=== PATIENT | male | born 1960 | race Asian ===

== ENCOUNTER 2016-10-19 12:08 | Inpatient (IN) | payer OTHER ==
[2016-10-19] VITALS (185 sets, daily range): BP systolic 110–115; BP diastolic 73–83; PULSE 73–91; TEMP 98.9–99; O2SAT 86–100
[~2016-10-19] VITALS: Ht 167.6 cm; Wt 60.3 kg
[2016-10-19 12:42] LABS: PROTHROMBIN TIME 11.1 SECONDS (9.7-12.8)
[2016-10-19 12:44] LABS: BASO # 0.1 (0.0-0.2); BASO % 0.9 % (0.0-2.0); EOS # 1.3 (0.0-0.7); EOS % 10.1 % (0-4.0); GRAN # 8.9 (1.4-6.5); GRAN % 69.5 % (42.2-75.2); HEMATOCRIT 37.7 % (42.0-52.0); HEMOGLOBIN 12.2 g/dl (13.5-18.0); LYMPH # 1.9 (1.2-3.4); LYMPH % 14.6 % (20.0-51.0); MEAN CELL VOLUME 81 fl (80.0-100.0); MEAN CORPUSCULAR HEMOGLOBIN 26 pg (27.0-31.0); MEAN CORPUSCULAR HGB CONC 32 g/dl (33.0-37.0); MONO # 0.6 (0.1-0.6); MONO % 4.3 % (1.7-9.3); PLATELET COUNT 423 K/mm3 (130-400); RED BLOOD COUNT 4.63 M/mm3 (4.20-5.60); REDCELL DISTRIBUTION WIDTH-CV 16.2 % (11.5-14.5); WHITE BLOOD COUNT 12.8 K/mm3 (4.8-10.8)
[2016-10-19 12:45] LABS: PARTIAL THROMBOPLASTIN TIME 43.2 SECONDS (26.0-37.0)
[2016-10-19 13:29] LABS: INFLUENZA B NEGATIVE
[2016-10-19 13:34] LABS: ADJUSTED CALCIUM 9.1 mg/dL (8.4-10.2); ALANINE AMINOTRANSFERASE 31 U/L (21-72); ALBUMIN 4.3 gm/dL (3.5-5.0); ALKALINE PHOSPHATASE 145 U/L (50-136); ANION GAP 12 mmol/L (7-16); BILIRUBIN,TOTAL 0.8 mg/dL (0.0-1.0); CALCIUM 9.3 mg/dL (8.4-10.2); CARBON DIOXIDE 24 mmol/L (22-30); CHLORIDE 93 mmol/L (98-107); CREATININE, serum 2.84 mg/dL (0.66-1.25); GLUCOSE 274 mg/dL (74-106); MAGNESIUM 2.9 mg/dL (1.6-2.3); PHOSPHOROUS 7.8 mg/dL (2.5-4.5); SODIUM 129 mmol/L (137-145); TOTAL PROTEIN 8.5 gm/dL (6.4-8.2); TROPONIN-I 0.027 ng/mL (0.000-0.034)
[2016-10-19 13:35] LABS: BLOOD UREA NITROGEN 87 mg/dL (9-20)
[2016-10-19 13:58] LABS: POTASSIUM 9.1 mmol/L (3.4-5.0)
[2016-10-19 15:30] LABS: HYALINE CAST >12 /lpf; PH 5 (5-8); SQUAMOUS EPITHELIAL 0-2 /hpf; URINE APPEARANCE Clear; URINE BACTERIA None Seen /hpf; URINE BILIRUBIN Negative (NEGATIVE); URINE BLOOD Negative (NEGATIVE); URINE COLOR Yellow; URINE GLUCOSE 1+ (NEGATIVE); URINE KETONE Negative (NEGATIVE); URINE RBC 0-2 /hpf; URINE UROBILINOGEN Negative (NEGATIVE); URINE WBC 0-2 /hpf
[2016-10-19] MEDS ORDERED: CEPHALEXIN500 M1 PO (16:08)
[2016-10-19] MEDS ORDERED: LEVAQUIN 5500 MG/TA1 PO (16:09)
[2016-10-19] MEDS ORDERED: LIPITOR 80MG80 MG PO (16:10)
[2016-10-19] MEDS ORDERED: IRON325 M2 PO (16:10)
[2016-10-19] MEDS ORDERED: ZESTRIL40 MG PO (16:11)
[2016-10-19] MEDS ORDERED: LASIX 40MG TABL40 MG PO (16:11)
[2016-10-19] MEDS ORDERED: KLOR-CON M2020 MEQ PO (16:12)
[2016-10-19] MEDS ORDERED: TOPROL XL 25MG25 MG PO ×2 (16:13→16:14)
[2016-10-19] MEDS ORDERED: TOPROL XL 50MG50 MG PO (16:13)
[2016-10-19] MEDS ORDERED: NITROSTAT0.4 MG/TAB SL (16:14)
[2016-10-19] MEDS ORDERED: ALDACTONE 25MG25 M1 PO (16:14)
[2016-10-19] MEDS ORDERED: TESSALON P100 MG/CAP PO (16:16)
[2016-10-20] VITALS (1153 sets, daily range): BP systolic 131–164; BP diastolic 57–94; PULSE 88–97; TEMP 97.8–99.1; O2SAT 84–100
[2016-10-20 06:22] LABS: CALCIUM 9.9 mg/dL (8.4-10.2); CREATININE, serum 1.23 mg/dL (0.66-1.25); POTASSIUM 5.4 mmol/L (3.4-5.0)
[2016-10-20 18:21] LABS: TROPONIN-I 0.035 ng/mL (0.000-0.034)
[2016-10-21] VITALS (836 sets, daily range): BP systolic 144–172; BP diastolic 90–94; PULSE 75–86; TEMP 97.4–98.9; O2SAT 89–100
[2016-10-21 06:11] LABS: BASO # 0.1 (0.0-0.2); BASO % 0.9 % (0.0-2.0); EOS # 0.8 (0.0-0.7); EOS % 9.8 % (0-4.0); GRAN # 5.2 (1.4-6.5); GRAN % 65.9 % (42.2-75.2); LYMPH # 1.3 (1.2-3.4); LYMPH % 16.6 % (20.0-51.0); MEAN CELL VOLUME 83 fl (80.0-100.0); MEAN CORPUSCULAR HGB CONC 32 g/dl (33.0-37.0); MEAN PLATELET VOLUME 11.4 fl (7.4-10.4); MONO # 0.5 (0.1-0.6); MONO % 6.4 % (1.7-9.3); RED BLOOD COUNT 3.45 M/mm3 (4.20-5.60); REDCELL DISTRIBUTION WIDTH-CV 15.7 % (11.5-14.5); WHITE BLOOD COUNT 7.9 K/mm3 (4.8-10.8)
[2016-10-21 06:16] LABS: CREATININE, serum 0.94 mg/dL (0.66-1.25); POTASSIUM 5.3 mmol/L (3.4-5.0)
[2016-10-21 06:17] LABS: HEMATOCRIT 28.6 % (42.0-52.0); HEMOGLOBIN 9.2 g/dl (13.5-18.0); MEAN CORPUSCULAR HEMOGLOBIN 27 pg (27.0-31.0); PLATELET COUNT 218 K/mm3 (130-400)
[2016-10-21 06:27] LABS: TROPONIN-I 0.034 ng/mL (0.000-0.034)
[2016-10-21] MEDS ORDERED: CLARITIN 1010 MG/TAB PO (20:44)
[2016-10-21] MEDS ORDERED: NORCO 325 MG-101 TAB PO (20:45)
[2016-10-21 23:11] LABS: PROT-CREAT RATIO, URINE 0.5 (())
[2016-10-22] VITALS (7 sets, daily range): BP systolic 134–159; BP diastolic 65–87; PULSE 64–80; TEMP 98.1–98.6
[2016-10-22 08:22] LABS: BASO % 0.5 % (0.0-2.0); GRAN # 5.2 (1.4-6.5); GRAN % 64.8 % (42.2-75.2); LYMPH # 1.4 (1.2-3.4); LYMPH % 17.4 % (20.0-51.0); MEAN CELL VOLUME 83 fl (80.0-100.0); MEAN CORPUSCULAR HGB CONC 32 g/dl (33.0-37.0); MEAN PLATELET VOLUME 11.4 fl (7.4-10.4); MONO # 0.4 (0.1-0.6); PLATELET COUNT 209 K/mm3 (130-400); RED BLOOD COUNT 3.69 M/mm3 (4.20-5.60); REDCELL DISTRIBUTION WIDTH-CV 15.6 % (11.5-14.5)
[2016-10-22 08:35] LABS: HEMATOCRIT 30.5 % (42.0-52.0); HEMOGLOBIN 9.7 g/dl (13.5-18.0); MEAN CORPUSCULAR HEMOGLOBIN 26 pg (27.0-31.0)
[2016-10-22 08:53] LABS: ADJUSTED CALCIUM 9.3 mg/dL (8.4-10.2); ALBUMIN 3.2 gm/dL (3.5-5.0); BILIRUBIN,TOTAL 0.6 mg/dL (0.0-1.0); CALCIUM 8.7 mg/dL (8.4-10.2); CREATININE, serum 0.92 mg/dL (0.66-1.25); POTASSIUM 4.4 mmol/L (3.4-5.0); TOTAL PROTEIN 6.5 gm/dL (6.4-8.2)
[2016-10-23 03:31] VITALS: BP 144/68; PULSE 72; TEMP 98.1
[2016-10-23 07:41] VITALS: BP 142/65; PULSE 72; TEMP 98
[2016-10-23 07:52] LABS: BASO # 0.1 (0.0-0.2); BASO % 0.5 % (0.0-2.0); EOS # 1.4 (0.0-0.7); GRAN # 5.8 (1.4-6.5); GRAN % 63.6 % (42.2-75.2); LYMPH # 1.5 (1.2-3.4); LYMPH % 16.1 % (20.0-51.0); MEAN CELL VOLUME 82 fl (80.0-100.0); MEAN CORPUSCULAR HGB CONC 32 g/dl (33.0-37.0); MEAN PLATELET VOLUME 10.8 fl (7.4-10.4); MONO # 0.4 (0.1-0.6); MONO % 4.6 % (1.7-9.3); PLATELET COUNT 198 K/mm3 (130-400); RED BLOOD COUNT 3.58 M/mm3 (4.20-5.60); REDCELL DISTRIBUTION WIDTH-CV 15.2 % (11.5-14.5); WHITE BLOOD COUNT 9.2 K/mm3 (4.8-10.8)
[2016-10-23 07:55] LABS: ADJUSTED CALCIUM 9.1 mg/dL (8.4-10.2); ALBUMIN 3.2 gm/dL (3.5-5.0); BILIRUBIN,TOTAL 0.5 mg/dL (0.0-1.0); CALCIUM 8.5 mg/dL (8.4-10.2); CREATININE, serum 0.85 mg/dL (0.66-1.25); POTASSIUM 4.1 mmol/L (3.4-5.0); TOTAL PROTEIN 6.6 gm/dL (6.4-8.2)
[2016-10-23 08:00] LABS: HEMATOCRIT 29.3 % (42.0-52.0); HEMOGLOBIN 9.4 g/dl (13.5-18.0); MEAN CORPUSCULAR HEMOGLOBIN 26 pg (27.0-31.0)
[2016-10-23 12:05] VITALS: BP 137/65; PULSE 72; TEMP 97.4
[2016-10-23] MEDS ORDERED: ASPIRIN E.C. 8181 MG PO (15:04)
[2016-10-23] MEDS ORDERED: LOPRESSOR 550 MG/TAB PO (15:04)
[2016-10-23] MEDS ORDERED: EFFIENT10 MG PO (15:05)
[2016-10-23] MEDS ORDERED: PROTONIX 40MG T40 MG PO (15:05)
== END 2016-10-23 15:50 | disposition home or self-care (01) | DRG 640 ==
LOC: COL.ER 12:08 → MEDICAL 15:10 → ICU 15:10 → MEDICAL 10-21 20:50
PROVIDERS: Emergency Medicine; Internal Medicine; Internal Medicine Nephrology
PROC: 5A1D00Z (ICD-10-PCS; principal; 2016-10-19)
PROC: 02HV33Z Insertion of Infusion Device into Superior Vena Cava, Percutaneous Approach (ICD-10-PCS; 2016-10-19)
DX: E87.5 Hyperkalemia (principal); J18.9 Pneumonia, unspecified organism; N17.9 Acute kidney failure, unspecified; T46.4X5A Adverse effect of angiotensin-converting-enzyme inhibitors, initial encounter; E11.65 Type 2 diabetes mellitus with hyperglycemia; I10 Essential (primary) hypertension; I25.10 Atherosclerotic heart disease of native coronary artery without angina pectoris; Z95.5 Presence of coronary angioplasty implant and graft; Z79.4 Long term (current) use of insulin; Z87.891 Personal history of nicotine dependence; K25.7 Chronic gastric ulcer without hemorrhage or perforation
CPT/HCPCS: C1751; J0610; J0692; J1650; J1815; J2270; J3370; J7030; J7050; J7070

== ENCOUNTER 2020-07-20 06:26 | Emergency (ER) | payer BC ==
[~2020-07-20] VITALS: Ht 167.6 cm; Wt 68.2 kg
[~2020-07-20 06:26] MED LIST: ALDACTONE 25MG25 M1 PO; ASPIRIN E.C. 8181 MG PO; CEPHALEXIN500 M1 PO; CLARITIN 1010 MG/TAB PO; EFFIENT10 MG PO; IRON325 M2 PO; KLOR-CON M2020 MEQ PO; LASIX 40MG TABL40 MG PO; LEVAQUIN 5500 MG/TA1 PO; LIPITOR 80MG80 MG PO; LOPRESSOR 550 MG/TAB PO; NITROSTAT0.4 MG/TAB SL; NORCO 325 MG-101 TAB PO; PROTONIX 40MG T40 MG PO; TESSALON P100 MG/CAP PO; TOPROL XL 25MG25 MG PO; TOPROL XL 50MG50 MG PO; ZESTRIL40 MG PO
[2020-07-20 06:31] VITALS: TEMP 96
[2020-07-20 06:49] LABS: BASO % 0.3 % (0.0-2.0); EOS # 0.9 (0.0-0.7); EOS % 7.5 % (0-4.0); GRAN # 9.9 (1.4-6.5); GRAN % 81.7 % (42.2-75.2); LYMPH # 0.7 (1.2-3.4); LYMPH % 5.7 % (20.0-51.0); MEAN CELL VOLUME 82 fl (80.0-100.0); MEAN CORPUSCULAR HGB CONC 31 g/dl (33.0-37.0); MEAN PLATELET VOLUME 10.7 fl (7.4-10.4); MONO # 0.5 (0.1-0.6); MONO % 4.2 % (1.7-9.3); PLATELET COUNT 233 K/mm3 (130-400); RED BLOOD COUNT 3.15 M/mm3 (4.20-5.60); REDCELL DISTRIBUTION WIDTH-CV 16.8 % (11.5-14.5)
[2020-07-20 06:52] LABS: HEMATOCRIT 25.8 % (42.0-52.0); HEMOGLOBIN 8.1 g/dl (13.5-18.0); MEAN CORPUSCULAR HEMOGLOBIN 26 pg (27.0-31.0)
[2020-07-20 06:57] LABS: PROTHROMBIN TIME 10.9 SECONDS (9.7-12.8)
[2020-07-20 07:00] LABS: PARTIAL THROMBOPLASTIN TIME 37.6 SECONDS (26.0-37.0)
[2020-07-20 07:03] LABS: ALANINE AMINOTRANSFERASE 11 U/L (4-49); ALBUMIN 3.3 gm/dL (3.5-5.0); ALKALINE PHOSPHATASE 120 U/L (50-136); ANION GAP 15 mmol/L (7-16); AST,SGOT 16 U/L (15-37); BILIRUBIN,TOTAL 0.6 mg/dL (0.0-1.0); BLOOD UREA NITROGEN 91 mg/dL (9-20); CALCIUM 7.1 mg/dL (8.4-10.2); CARBON DIOXIDE 24 mmol/L (22-30); CHLORIDE 90 mmol/L (98-107); CREATINE KINASE 32 U/L (55-170); CREATININE, serum 6.05 (0.66-1.25); GLUCOSE 186 mg/dL (74-106); LIPASE 37 U/L (23-300); MAGNESIUM 2.9 mg/dL (1.6-2.3); SODIUM 129 mmol/L (137-145); TOTAL PROTEIN 6.6 gm/dL (6.4-8.2)
[2020-07-20 07:05] LABS: POTASSIUM 6.7 mmol/L (3.4-5.0)
[2020-07-20 07:14] LABS: TROPONIN-I < 0.012 ng/mL (0.000-0.035)
[2020-07-20 07:14] LABS: ARTERIAL BLD GAS O2 SATURATION 95.7 % (92-100); ARTERIAL BLD GAS TCO2 CT 19.5; ARTERIAL BLOOD GAS BASE EXCESS -6.3 (-2-2); ARTERIAL BLOOD GAS HCO3 18.5 meq/L (22-26); ARTERIAL BLOOD GAS PCO2 33.6 mmHg (35-45); ARTERIAL BLOOD GAS PO2 87.7 mmHg (80-100); ARTERIAL BLOOD GAS pH 7.36 (7.35-7.45)
[2020-07-20 07:15] LABS: C-REACTIVE PROTEIN 23.9 mg/dL (0.0-0.9)
[2020-07-20] MEDS ORDERED: PLAVIX 75MG TAB75 MG PO (08:48)
[2020-07-20] MEDS ORDERED: PROCARDIA XL90 MG PO (08:50)
[2020-07-20] MEDS ORDERED: ZOCOR 10MG10 MG PO ×2 (08:51→08:56)
[2020-07-20] MEDS ORDERED: LASIX 80MG TABL80 MG PO (08:51)
[2020-07-20] MEDS ORDERED: NORCO 325 MG-101 TAB PO (08:57)
[2020-07-20] MEDS ORDERED: TRESIBA FL100 UNIT/1 SQ (08:57)
[2020-07-20] MEDS ORDERED: NOVOLOG FLEX100 U/ML SQ (08:58)
[2020-07-20] MEDS ORDERED: COREG 25MG25 MG/TAB PO (09:00)
[2020-07-20 10:00] VITALS: BP 108/66; PULSE 58
== END 2020-07-20 10:15 | disposition short-term general hospital (02) ==
LOC: COL.ER 06:26
PROVIDERS: Emergency Medicine
DX: J15.9 Unspecified bacterial pneumonia (principal); R65.21 Severe sepsis with septic shock; J96.00 Acute respiratory failure, unspecified whether with hypoxia or hypercapnia; E87.5 Hyperkalemia; R18.8 Other ascites; I25.10 Atherosclerotic heart disease of native coronary artery without angina pectoris; E11.9 Type 2 diabetes mellitus without complications; E78.5 Hyperlipidemia, unspecified; I10 Essential (primary) hypertension; Z79.4 Long term (current) use of insulin; Z87.891 Personal history of nicotine dependence; Z95.9 Presence of cardiac and vascular implant and graft, unspecified; Z79.02 Long term (current) use of antithrombotics/antiplatelets; Z20.828 Contact with and (suspected) exposure to other viral communicable diseases